=== PATIENT | female | born 1955 | race Caucasian/White ===

== ENCOUNTER → 2016-11-01 | Outpatient (CLI) | payer BC ==
--- NOTE | 2016-11-02 07:48 | BD ---
EXAMINATION TYPE: MG DEXA axial skeleton. DATE OF EXAM: 11/01/2016 COMPARISON: Bone density August 14, 2012 CLINICAL HISTORY: Postmenopausal female Height: 64 IN Weight: 147 LBS FRAX RISK QUESTIONS: Alcohol (3 or more units per day): NO Family History (Parent hip fracture): NO Glucocorticoids (More than 3mos): NO (Ex: prednisone, prednisolone, methylprednisolone, dexamethasone, and hydrocortisone). History of Fracture in Adulthood: NO Secondary Osteoporosis: 1. Type 1 Diabetes: NO 2. Hyperthyroidism: NO 3. Menopause before 45: YES AGE 43 4. Malnutrition: NO 5. Chronic liver disease: NO Rheumatoid Arthritis: NO Current Tobacco Use: NO RISK FACTORS HISTORY OF: Active: YES Diet low in dairy products/other sources of calcium: YES Postmenopausal woman: AGE 43 MEDICATIONS: Additional Medications: CALCIUM, VIT D, CHOLESTEROL MEDS, EXAM MEASUREMENTS: Bone mineral densitometry was performed using the [employer] System. Bone mineral density as measured about the Lumbar spine is: ----- L1-L4(G/cm2): -1.0 T Score Values are as follows: ----- L2: -1.8 ----- L3: -0.7 ----- L4: 0.2 ----- L1-L4: -1.0 Bone mineral density has: Increased 2.4% since study of: 08/14/2012 Bone mineral density about the R hip (g/cm2): 0.806 Bone mineral density about the L hip (g/cm2): 0.821 T Score values are as follows: -----R Neck: -1.4 -----L Neck: -1.9 -----R Total: -1.6 -----L Total: -1.5 Bone mineral density has: Decreased 1.6% since study of: 08/08/1612 IMPRESSION: Osteopenia (T Score between -2.5 and -1 as noted by T score values remains present in both hips. Ther e remains slightly increased risk of fracture and the patient may be considered for treatment. Re-Scr een 2-5 years. NOTE: T-SCORE=SD OF THE YOUNG ADULT MEAN.
--- NOTE | 2016-11-02 11:27 | MM ---
Reason for exam: screening (asymptomatic). Last mammogram was performed 3 years and 1 month ago. History: Patient is postmenopausal. Physical Findings: A clinical breast exam by your physician is recommended on an annual basis and results should be correlated with mammographic findings. MG Screening Mammo w CAD Bilateral CC and MLO view(s) were taken. Prior study comparison: October 06, 2013, bilateral MG screening mammo w CAD. August 14, 2012, bilateral digital screening mammo w/CAD. The breast tissue is heterogeneously dense. This may lower the sensitivity of mammography. Asymmetric breast tissue bilaterally. There is no discrete abnormality. ASSESSMENT: Negative, BI-RAD 1 RECOMMENDATION: Routine screening mammogram of both breasts in 1 year.
== END | disposition home or self-care (01) ==
LOC: RADMAMWWP 15:16
PROVIDERS: ATTEND Obstetrics & Gynecology
DX: Z12.31 Encounter for screening mammogram for malignant neoplasm of breast (principal); M85.88 Other specified disorders of bone density and structure, other site
CPT/HCPCS: 77080; G0202

== ENCOUNTER → 2017-11-08 | Outpatient (CLI) | payer BC ==
--- NOTE | 2017-11-09 11:09 | MM ---
Reason for exam: screening (asymptomatic). Last mammogram was performed 1 year ago. History: Patient is postmenopausal. Physical Findings: A clinical breast exam by your physician is recommended on an annual basis and results should be correlated with mammographic findings. MG Screening Mammo w CAD Bilateral CC and MLO view(s) were taken. Prior study comparison: November 01, 2016, bilateral MG screening mammo w CAD. October 06, 2013, bilateral MG screening mammo w CAD. The breast tissue is heterogeneously dense. This may lower the sensitivity of mammography. There is no discrete abnormality. No significant changes when compared with prior studies. ASSESSMENT: Negative, BI-RAD 1 RECOMMENDATION: Routine screening mammogram of both breasts in 1 year.
== END | disposition home or self-care (01) ==
LOC: RADMAMWWP 15:03
PROVIDERS: ATTEND Obstetrics & Gynecology
DX: Z12.31 Encounter for screening mammogram for malignant neoplasm of breast (principal)
CPT/HCPCS: 77067

== ENCOUNTER → 2018-10-28 | Day surgery (SDC) | payer BC ==
[2018-10-24 13:52] VITALS: BMI 23.6
[~2018-10-28] MED LIST: LACTATED RINGERS 1,000 ML IV SCH; LIDOCAINE 1% 20 ML VIAL (10MG/ML) FOR IV START INTRADERMA ONE; LIDOCAINE 1% INJ 10MG/ML (20 ML MDV) ONE; PROPOFOL 10 MG/ML 20 ML VIAL IV ONE
[2018-10-28 09:14] VITALS: RESP 16; TEMP 97.9
--- NOTE | 2018-10-28 10:36 | P.PCN ---
Date of Procedure: 10/28/18 Description of Procedure: BRIEF HISTORY: Patient is a 62-year-old pleasant female scheduled for an elective colonoscopy as a part of screening for malignant neoplasm colon. Denies any change in bowel habits, constipation, diarrhea or abdominal pain. No family history of colon cancer. Last colonoscopy 10 years ago and normal per her recollection. PROCEDURE PERFORMED: Colonoscopy. PREOPERATIVE DIAGNOSIS: Screening for malignant neoplasm of the colon, last colonoscopy 10 years ago. ESTIMATED BLOOD LOSS: Minimal. IV sedation per Anesthesia. PROCEDURE: After informed consent was obtained, the patient, was brought into the endoscopy unit. IV sedation was administered by Anesthesia under continuous monitoring. Digital rectal examination was normal. Initially the Olympus CF-190 flexible video colonoscope was then inserted in the rectum, gradually advanced into the cecum without any difficulty. Careful examination was performed as the scope was gradually being withdrawn. Ileocecal valve and the appendiceal orifice were visualized and appeared normal. Prep was excellent. Mucosa of the cecum, ascending colon, transverse colon, descending colon, sigmoid colon, and rectum appeared normal. Retroflexion was performed in the rectum and no lesions were seen, mild internal hemorrhoids noted. The patient tolerated the procedure well. IMPRESSION: Normal-appearing colon from rectum to cecum. RECOMMENDATIONS: Findings of this examination were discussed with the patient and her . Okay to resume diet. Recommendation is for repeat colonoscopy in 10 years, or sooner if signs or symptoms which warrant further evaluation develop.
[2018-10-28 10:57] VITALS: BP 128/60; PULSE 51
== END | disposition home or self-care (01) ==
LOC: ORWHC2ENDO 08:45
PROVIDERS: ATTEND Internal Medicine
DX: Z12.11 Encounter for screening for malignant neoplasm of colon (principal); K64.8 Other hemorrhoids; Z88.8 Allergy status to other drugs, medicaments and biological substances; E78.5 Hyperlipidemia, unspecified; Z79.899 Other long term (current) drug therapy; Z88.6 Allergy status to analgesic agent
CPT/HCPCS: J2001; J2704; G0121; 45378

== ENCOUNTER → 2018-12-27 | Outpatient (CLI) | payer BC ==
--- NOTE | 2018-12-30 07:41 | BD ---
EXAMINATION TYPE: Axial Bone Density DATE OF EXAM: 12/27/2018 COMPARISON: 2017 CLINICAL HISTORY: M [age] Height: 5 FT 3 3/4 IN Weight: 139 FRAX RISK QUESTIONS: Secondary Osteoporosis: 3. Menopause before 45: YES RISK FACTORS HISTORY OF: Active: YES Postmenopausal woman: AGE 43 MEDICATIONS: Additional Medications: CHOLESTEROL, Additional History: EXAM MEASUREMENTS: Bone mineral densitometry was performed using the [employer] System. Bone mineral density as measured about the Lumbar spine is: ----- L1-L4(G/cm2): 1.106 T Score Values are as follows: ----- L2: -1.8 ----- L3: 0.1 ----- L4: 0.4 ----- L1-L4: -0.6 Bone mineral density has: INCREASED 4.0 % since study of: 2016 Bone mineral density about the R hip (g/cm2): 0.813 Bone mineral density about the L hip (g/cm2): 0.765 T Score values are as follows: -----R Neck: -1.6 -----L Neck: -2.0 -----R Total: -1.9 -----L Total: -1.8 Bone mineral density has: DECREASED -5.2 % since study of: 2017 IMPRESSION: Osteopenia (T Score between -2.5 and -1). There is slightly increased risk of fracture and the patient may be considered for treatment. Re-Screen 2-5 years. NOTE: T-SCORE=SD OF THE YOUNG ADULT MEAN.
--- NOTE | 2018-12-30 11:33 | MM ---
Reason for exam: screening (asymptomatic). Last mammogram was performed 1 year and 2 months ago. History: Patient is postmenopausal. Physical Findings: A clinical breast exam by your physician is recommended on an annual basis and results should be correlated with mammographic findings. MG 3D Screening Mammo W/Cad Bilateral CC and MLO view(s) were taken. Prior study comparison: November 08, 2017, bilateral MG screening mammo w CAD. November 01, 2016, bilateral MG screening mammo w CAD. The breast tissue is heterogeneously dense. This may lower the sensitivity of mammography. Focal asymmetry upper outer right breast. This finding is changed when compared with previous exams. ASSESSMENT: Incomplete: need additional imaging evaluation, BI-RAD 0 RECOMMENDATION: Special view mammogram of the right breast. If lesion persists on supplemental views, image directed ultrasound is recommended. [facility] will attempt to contact patient to return for supplemental views and ultrasound if indicated.
== END | disposition home or self-care (01) ==
LOC: RADMAMWWP 15:00
PROVIDERS: ATTEND Obstetrics & Gynecology
DX: Z12.31 Encounter for screening mammogram for malignant neoplasm of breast (principal); M85.80 Other specified disorders of bone density and structure, unspecified site
CPT/HCPCS: 77063; 77067; 77080

== ENCOUNTER → 2019-01-09 | Outpatient (CLI) | payer BC ==
--- NOTE | 2019-01-09 13:41 | MM ---
Reason for exam: additional evaluation requested from abnormal screening. Last mammogram was performed less than 1 month ago. History: Patient is postmenopausal. Physical Findings: Nurse did not find any significant physical abnormalities on exam. MG 3D Work Up W/Cad RT Spot compression CC, spot compression MLO, and ML view(s) were taken of the right breast. Prior study comparison: December 27, 2018, bilateral MG 3d screening mammo w/cad. November 08, 2017, bilateral MG screening mammo w CAD. Persistent nodule in the right breast 4.4cm from nipple. These results were verbally communicated with the patient and result sheet given to the patient on 01/09/19. ASSESSMENT: Incomplete: need additional imaging evaluation, BI-RAD 0 RECOMMENDATION: Ultrasound of the right breast.
--- NOTE | 2019-01-09 13:43 | USB ---
Reason for exam: additional evaluation requested from abnormal screening. History: Patient is postmenopausal. US Breast Workup Limited RT Right limited breast ultrasound including focal area of concern, retroareolar and axilla demonstrates a 0.3 x 0.2 x 0.3cm lesion too small to characterize at 9:30 and a 0.6 x 0.5 x 0.6cm mixed lesion at 9 o'clock for which a biopsy is recommended. These results were verbally communicated with the patient and result sheet given to the patient on 01/09/19. ASSESSMENT: Suspicious, BI-RAD 4 RECOMMENDATION: Ultrasound core biopsy of the right breast. Called Dr. Gtz's office with mammographic findings and has scheduled an appointment for the patient for 01/22/19 at 1:[address] Mack. Biopsy scheduled for 01/23/19 at 12:20. PRELIMINARY REPORT CALLED AND FAXED TO DR. MACK ON 01/09/19.
== END | disposition home or self-care (01) ==
LOC: RADMAMWWP 08:40
PROVIDERS: ATTEND Obstetrics & Gynecology
DX: R92.8 Other abnormal and inconclusive findings on diagnostic imaging of breast (principal)
CPT/HCPCS: 77061; 77065

== ENCOUNTER → 2019-01-22 | Outpatient (CLI) | payer BC ==
[2019-01-22 14:27] VITALS: BP 137/78; PULSE 66; RESP 18; TEMP 97.7
--- NOTE | 2019-01-22 15:30 | P.GSHP ---
History of Present Illness H&P Date: 01/22/19 Chief Complaint: abnormal mammogram of hte right breast Angeles is a 63-year-old white female who presents for breast evaluation. She underwent a routine 3-D screening mammogram on . This revealed a focal asymmetry in the upper outer quadrant of the right breast. The patient subsequently underwent additional views of the right breast in which the nodularity persisted. An ultrasound was then performed which revealed a 0.5 x 0.6 cm mixed lesion at 9:00 for which an ultrasound core biopsy was recommended. The patient does not feel any masses or nodules in her breast. She has not had any recent trauma or infection in the breast. She has not had any breast biopsy in the past. She drinks coffee 1-2 cup/day. She does not smoke, and is not exposed to second hand smoke. She does not eat chocolate regularly. She is not taking any hormones or soy products. Family history: mother: ? site, metastatic disease father: prostate Hormonal History: menarche: 13 , 1 [place], breast fed: no, first born at 18 menopause: periods stopped 42 hormones: none Past Medical History: high cholesterol follows with DR. Allen, renal disease elevated creatine Past Surgical History: 1. exploratory surgery cyst on an ovary Social History: smoke: 1 PPD started at 18, but stopped years ago alcohol: occasional drugs: none - Constitutional Constitutional: Denies chills, Denies fever - EENT Eyes: denies blurred vision, denies pain Ears: deny: decreased hearing, tinnitus Ears, nose, mouth and throat: Denies headache, Denies sore throat - Breasts Breasts: bilateral: as per HPI - Cardiovascular Comment: high cholesterol Cardiovascular: Denies chest pain, Denies shortness of breath - Respiratory Comment: former smoker Respiratory: Denies cough, Denies 7 - Gastrointestinal Gastrointestinal: Denies abdominal pain, Denies diarrhea, Denies nausea, Denies vomiting - Genitourinary (Female) Genitourinary: Denies dysuria, Denies hematuria - Menstruation Menstruation: Reports postmenopausal - Musculoskeletal Musculoskeletal: Denies myalgias - Integumentary Comment: sees mercantile agent Integumentary: Denies pruritus, Denies rash - Neurological Neurological: Denies numbness, Denies weakness - Psychiatric Psychiatric: Denies anxiety, Denies depression - Endocrine Endocrine: Denies fatigue, Denies weight change - Hematologic/Lymphatic Comment: none - Allergic/Immunologic Allergic/Immunologic: Reports as per HPI Past Medical History Past Medical History: Renal Disease Additional Past Medical History / Comment(s): SEES DR ALLEN FOR HER KIDNEYS. History of Any Multi-Drug Resistant Organisms: None Reported Additional Past Surgical History / Comment(s): EXPLORATORY WITH OVARIAN CYST, COLONOSCOPY Past Anesthesia/Blood Transfusion Reactions: No Reported Reaction Past Psychological History: No Psychological Hx Reported Smoking Status: Former smoker Past Alcohol Use History: Rare Additional Past Alcohol Use History / Comment(s): QUIT SMOKING FEB 2009, WAS SMOKING 5-7 CIGARETTES/DAY, SMOKED APPROX 25 YEARS. Past Drug Use History: None Reported - Past Family History Mother Family Medical History: Cancer Father Family Medical History: Cancer Additional Family Medical History / Comment(s): PROSTATE CANCER Medications and Allergies Home Medications Medication Instructions Recorded Confirmed Type Ascorbic Acid [Vitamin C] 500 mg PO DAILY 10/24/18 01/22/19 History Atorvastatin [Lipitor] 10 mg PO HS 10/24/18 01/22/19 History Caltrate (Unknown Dose) 1 tab PO DAILY 10/24/18 01/22/19 History Cholecalciferol (Vitamin D3) 1,000 unit PO DAILY 10/24/18 01/22/19 History [Vitamin D3] Co Q-10 (Unknown Dose) 1 tab PO DAILY 10/24/18 01/22/19 History Krill Oil (Unknown Dose) 1 tab PO DAILY 10/24/18 01/22/19 History Lactobacillus Acidophilus 1 each PO DAILY 10/24/18 01/22/19 History [Acidophilus] Multivitamins, Thera [Multivitamin 1 tab PO DAILY 10/24/18 01/22/19 History (formulary)] Allergies Allergy/AdvReac Type Severity Reaction Status Date / Time ibuprofen Allergy Unknown Heart Verified 01/22/19 14:28 racing, chest pain oxytetracycline Allergy Unknown Rash/Hives, Verified 01/22/19 14:28 [From Urobiotic] Itching phenazopyridine Allergy Unknown Rash/Hives, Verified 01/22/19 14:28 [From Urobiotic] Itching sulfamethizole Allergy Unknown Rash/Hives, Verified 01/22/19 14:28 [From Urobiotic] Itching estrogens, conjugated Allergy Rash/Hives Unverified 01/22/19 14:28 [From Prempro] ethinyl estradiol Allergy Itching Unverified 01/22/19 14:28 [From Femhrt 1] medroxyprogesterone Allergy Rash/Hives Unverified 01/22/19 14:28 [From Prempro] norethindrone acetate Allergy Itching Unverified 01/22/19 14:28 [From Femhrt 02/23] Surgical - Exam Vital Signs Temp Pulse Resp BP Pulse Ox 97.7 F 66 18 137/78 98 01/22/19 14:23 01/22/19 14:23 01/22/19 14:23 01/22/19 14:23 01/22/19 14:23 BMI 24.4 - General well developed, well nourished, no distress - Eyes normal ocular movement - ENT no hearing loss, no congestion - Neck no masses, trachea midline - Respiratory normal respiratory effort, clear to auscultation - Cardiovascular Rhythm: regular Heart Sounds: normal: S1, S2 - Abdomen Abdomen: soft, non tender, no guarding, no rigid, no rebound - Integumentary normal turgor - Neurologic no disoriented, no combative - Musculoskeletal normal gait, normal posture - Psychiatric oriented to time, oriented to person, oriented to place, speech is normal, memory intact breast exam: right breast: Multi-positional exam fibrocystic changes, no dominant masses or nodules of concern Right axilla: No adenopathy of concern Left breast: Multi-positional exam no dominant masses or nodules of concern Left axilla: No adenopathy of concern Results Mammogram and ultrasound results reviewed Assessment and Plan Assessment: Impression: 1. Abnormal mammogram and ultrasound right breast/9 o'clock position 2. Fibrocystic breast changes 3. Family history of cancer father/mother no history of breast cancer 4. Elevated creatinine in the past follows with Dr. Allen clinically stable 5. elevated cholesterol Plan: 1. Abnormal mammogram and ultrasound right breast, patient to have ultrasound core biopsy 2. Follow up 1 week after ultrasound core biopsy Risks and benefits of the procedure were discussed with the patient. Risks include bleeding, infection, possible inability to see the lesion. The patient understands and wishes to proceed. The patient has question whether she can do water aerobics immediately after the procedure. I have recommended that she wait approximately 48 hours. Encounter 20 minutes, > 50% planning and coordination of care. Cc:
== END ==
LOC: WWCWWP 14:07
PROVIDERS: ATTEND Surgery
DX: Z53.9 Procedure and treatment not carried out, unspecified reason (principal)

== ENCOUNTER → 2019-01-23 | Day surgery (SDC) | payer BC ==
[2019-01-23 11:47] VITALS: RESP 16
[2019-01-23 12:37] VITALS: BP 160/84; PULSE 84; TEMP 98.1
--- NOTE | 2019-01-23 12:38 | USB ---
EXAMINATION TYPE: US biopsy breast VAD RT, MG diagnostic mammo RT wo CAD DATE OF EXAM: 01/23/2019 CLINICAL HISTORY: R92.8, Abnormal mammogram. TECHNIQUE: Ultrasound guided core biopsy of right breast. COMPARISON: Right breast ultrasound dated 01/09/2019 FINDINGS: The procedure of ultrasound guided core biopsy was explained to the patient. Benefits, alternatives, and risks were discussed. An informed consent was then obtained. Preprocedural timeout was performed. The patient was placed in supine positioning for imaging and for the procedure. The overlying skin was prepped and draped in usual sterile fashion. 10 cc of 1% lidocaine was used as anesthetic into the skin and subcutaneous tissue up to a 0.6 cm mass at the 9:00 position in the right breast. Under ultrasound guidance, a 12-gauge vacuum assisted biopsy gun device was used to obtain 5 core samples. Following this, a biopsy marker was left in the mass. Postprocedure mammogram demonstrates appropriate biopsy marker placement. This is concordant with the mammographic mass. The patient tolerated the procedure well without any immediate complication. The patient was kept in the radiology department for short stay after the procedure and then discharged home in stable condition. IMPRESSION: Successful, uncomplicated ultrasound guided core biopsy of area of a 0.6 cm mass at the 9:00 position in the right breast, full pathology results to follow. Pathology Results: Benign RIGHT BREAST, NINE O'CLOCK, ULTRASOUND GUIDED CORE BIOPSY: Fibroadenoma, tubular variant. Recommendation Follow up mammogram of the right breast in 6 months. FABIOLA
--- NOTE | 2019-01-31 14:24 | P.PN ---
Subjective Progress Note Date: 01/31/19 Principal diagnosis: Angeles is a 63 year old white female status post a right breast core biopsy on 01-23-19. Pathology revealed a fibroadenoma. She has done well since the procedure with no complaints. Objective - Vital Signs Vital signs: Vital Signs Temp 98.1 F 01/23/19 12:33 Pulse 84 01/23/19 12:33 Resp 16 01/23/19 12:33 BP 160/84 01/23/19 12:33 Pulse Ox - Exam BMI 23.7 - Constitutional General appearance: Present: average body habitus - EENT Eyes: Present: EOMI ENT: Present: hearing grossly normal - Neck Neck: Present: normal ROM - Respiratory Respiratory: bilateral: CTA - Cardiovascular Rhythm: regular Heart sounds: normal: S1, S2 - Integumentary Integumentary Comment(s): incision site: mild echymosis at the biopsy site, no infection Integumentary: Present: normal turgor Assessment and Plan Assessment: Impression: 1. status post right breast core biopsy, pathology fibroadenoma Plan: 1. follow up in 6 months with mammogram and ultrasound of the right breast CC: DR. Gtz, Dr. West Time with Patient: Less than 30
== END ==
LOC: RADUSWWP 11:07
PROVIDERS: ATTEND Surgery
DX: D24.1 Benign neoplasm of right breast (principal)
CPT/HCPCS: 88305; 77065; 19083; A4648; J2001

== ENCOUNTER → 2019-01-31 | Outpatient (CLI) | payer BC ==
[2019-01-31 14:39] VITALS: BP 123/59; PULSE 83; RESP 18; TEMP 98.3
== END | disposition home or self-care (01) ==
LOC: WWCWWP 14:10
PROVIDERS: ATTEND Surgery
DX: Z53.9 Procedure and treatment not carried out, unspecified reason (principal)

== ENCOUNTER → 2020-02-12 | Outpatient (CLI) | payer BC ==
--- NOTE | 2020-02-17 10:03 | MM ---
Reason for exam: screening (asymptomatic). Last mammogram was performed 1 year and 1 month ago. History: Patient is postmenopausal. Benign US biopsy breast VAD RT of the right breast, January 23, 2019. Physical Findings: A clinical breast exam by your physician is recommended on an annual basis and results should be correlated with mammographic findings. MG 3D Screening Mammo W/Cad Bilateral CC and MLO view(s) were taken. Prior study comparison: January 23, 2019, right breast MG diagnostic mammo RT wo CAD. January 09, 2019, right breast MG 3d work up w/cad RT. The breast tissue is heterogeneously dense. This may lower the sensitivity of mammography. Previous mammotome biopsy in the right breast. No significant changes when compared with prior studies. ASSESSMENT: Negative, BI-RAD 1 RECOMMENDATION: Routine screening mammogram of both breasts in 1 year.
== END | disposition home or self-care (01) ==
LOC: RADMAMWWP 07:44
PROVIDERS: ATTEND Obstetrics & Gynecology
DX: Z12.31 Encounter for screening mammogram for malignant neoplasm of breast (principal)
CPT/HCPCS: 77063; 77067

== ENCOUNTER → 2022-05-03 | Outpatient (CLI) | payer BC ==
--- NOTE | 2022-05-03 10:36 | MM ---
Reason for Exam: Screening (asymptomatic). Last mammogram was performed 1 year(s) and 2 month(s) ago. Patient History: Menarche at age 12. First Full-Term at age 18. Postmenopausal. 01/23/2019, Benign Core Biopsy on the right side. Risk Values: Anjali 5 year model risk: 1.4%. NCI Lifetime model risk: 5.2%. Prior Study Comparison: 01/23/2019 Right Diagnostic Mammogram, [facility]. 02/12/2020 Bilateral Screening Mammogram, [facility]. 02/28/2021 Bilateral Screening Mammogram, [facility]. Tissue Density: The breast tissue is heterogeneously dense. This may lower the sensitivity of mammography. Analyzed By CAD. Overall Assessment: Benign, BI-RAD 2 Management: Screening Mammogram of both breasts in 1 year. Electronically signed and approved by: Magno Gooden M.D.
== END | disposition home or self-care (01) ==
LOC: RADMAMWWP 06:47
PROVIDERS: ATTEND Obstetrics & Gynecology
DX: Z12.31 Encounter for screening mammogram for malignant neoplasm of breast (principal); Z78.0 Asymptomatic menopausal state
CPT/HCPCS: 77063; 77067

== ENCOUNTER 2022-06-10 19:06 | Observation (INO) | payer BC ==
[2022-06-10] MEDS ORDERED: SODIUM CHLORIDE 0.9% 500 ML 500 ML IV ONE (19:40)
[2022-06-10] MEDS ORDERED: MECLIZINE 12.5 MG TAB PO STA (19:40)
[2022-06-10] MEDS ORDERED: PROCHLORPERAZINE INJ 10 MG/2 ML VIAL IVP STA (20:27)
[2022-06-10 20:28] LABS: Basophils % (A) 0 %; Eosinophils # (A) 0.1 k/uL (0-0.7); Eosinophils % (A) 1 %; HCT 42.9 % (34.0-46.0); HGB 14.4 gm/dL (11.4-16.0); Lymphocytes # (A) 0.9 k/uL (1.0-4.8); Lymphocytes % (A) 10 %; MCH 29.2 pg (25.0-35.0); MCHC 33.5 g/dL (31.0-37.0); MCV 87.1 fL (80.0-100.0); Mean Platelet Volume 7.3; Monocytes # (A) 0.4 k/uL (0-1.0); Monocytes % (A) 4 %; Neutrophils % (A) 85 %; Platelet Count 257 k/uL (150-450); RBC 4.93 m/uL (3.80-5.40); RDW 13.7 % (11.5-15.5); WBC 9.4 k/uL (3.8-10.6)
--- NOTE | 2022-06-10 20:29 | ED ---
General Adult HPI - General Chief complaint: Nausea/Vomiting/Diarrhea Stated complaint: Vertigo Time Seen by Provider: 06/10/22 19:08 Source: patient, RN notes reviewed Mode of arrival: EMS Limitations: no limitations - History of Present Illness Initial comments: 66-year-old female with past medical history significant for vertigo presents to the emergency department via EMS with a chief complaint of dizziness. Patient reports that her dizziness awoke her from her sleep last night. She reports that she feels as if she is spinning. She is also complaining of accompanying symptoms of photophobia, nausea and vomiting. She reports that her last flare up of vertigo was approximately 10 years ago. He denies any lightheadedness, chest pain, shortness of breath, palpitations, abdominal pain. She reports recent trauma or falls. - Related Data Home Medications Medication Instructions Recorded Confirmed Atorvastatin [Lipitor] 20 mg PO HS 06/10/22 06/10/22 Krill/[place]-3/Dha/Epa/Lipids 1 cap PO DAILY 06/10/22 06/10/22 [Krill Oil 350 mg Softgel] Multivit-Min/Iron/Folic/Lutein 1 tab PO DAILY 06/10/22 06/10/22 [Centrum Silver Women Tablet] Allergies Allergy/AdvReac Type Severity Reaction Status Date / Time ibuprofen Allergy Unknown Heart Verified 06/10/22 21:15 racing, chest pain oxytetracycline Allergy Unknown Rash/Hives, Verified 06/10/22 21:15 [From Urobiotic] Itching phenazopyridine Allergy Unknown Rash/Hives, Verified 06/10/22 21:15 [From Urobiotic] Itching sulfamethizole Allergy Unknown Rash/Hives, Verified 06/10/22 21:15 [From Urobiotic] Itching estrogens, conjugated Allergy Rash/Hives Verified 06/10/22 21:15 [From Prempro] ethinyl estradiol Allergy Itching Verified 06/10/22 21:15 [From Femhrt 1] medroxyprogesterone Allergy Rash/Hives Verified 06/10/22 21:15 [From Prempro] norethindrone acetate Allergy Itching Verified 06/10/22 21:15 [From Femhrt 02/23] Review of Systems ROS Statement: Those systems with pertinent positive or pertinent negative responses have been documented in the HPI. ROS Other: All systems not noted in ROS Statement are negative. Past Medical History Past Medical History: Renal Disease Additional Past Medical History / Comment(s): SEES DR MCDONNELL FOR HER KIDNEYS. 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 Absent: scleral icterus, conjunctival injection, periorbital swelling ENT exam: Present: normal exam, mucous membranes moist Neck exam: Present: normal inspection. Absent: tenderness, meningismus, lymphadenopathy Respiratory exam: Present: normal lung sounds bilaterally. Absent: respiratory distress, wheezes, rales, rhonchi, stridor Cardiovascular Exam: Present: regular rate, normal rhythm, normal heart sounds. Absent: systolic murmur, diastolic murmur, rubs, gallop, clicks GI/Abdominal exam: Present: soft, normal bowel sounds. Absent: distended, tenderness, guarding, rebound, rigid Extremities exam: Present: normal inspection, full ROM, normal capillary refill. Absent: tenderness, pedal edema, joint swelling, calf tenderness Back exam: Present: normal inspection Neurological exam: Present: alert, oriented X3, CN II-XII intact. Absent: normal gait Expanded Patient oriented to: Present: person, place, time Speech: Present: fluid speech Cranial nerves: EOM's Intact: Normal, Nystagmus: Abnormal Left Cerebellar function: Finger to Nose: Normal, Heel to Em: Normal, Romberg: Normal Sensory exam: Upper Extremity Light Touch: Normal, Lower Extremity Light Touch: Normal Motor strength exam: RUE: 5, LUE: 5, RLE: 5, LLE: 5 Eye Response: (4) open spontaneously Motor Response: (6) obeys commands Verbal Response: (5) oriented Psychiatric exam: Present: normal affect, normal mood Skin exam: Present: warm, dry, intact, normal color. Absent: rash Course Vital Signs 06/10/22 06/10/22 06/10/22 19:09 21:02 22:04 Temperature 97.6 F Pulse Rate 66 82 75 Respiratory 18 17 16 Rate Blood Pressure 184/92 162/79 162/79 O2 Sat by Pulse 97 96 92 L Oximetry - Reevaluation(s) Reevaluation #1: 06/10/22 21:01 Patient unable to ambulate. CT ordered Reevaluation #2: 06/10/22 22:25 Patient reevaluated. Patient still unable to ambulate. Patient is agreeable with the plan for admission. Reevaluation #3: 06/10/22 22:[address] [facility] who agrees and accepts the patient for admission Medical Decision Making - Medical Decision Making Was pt. sent in by a medical professional or institution (, PA, RAIL CAR UNLOADER, urgent care, hospital, or skilled nursing...) When possible be specific @ -[No] Did you speak to anyone other than the patient for history (EMS, parent, family, police, friend...)? What history was obtained from this source @ -[No] Did you review nursing and triage notes (agree or disagree)? Why? @ -[I reviewed and agree with nursing and triage notes] Were old charts reviewed (outside hosp., previous admission, EMS record, old EKG, old radiological studies, urgent care reports/EKG's, skilled nursing records)? Report findings @ -[No old charts were reviewed] Differential Diagnosis (chest pain, altered mental status, abdominal pain women, abdominal pain men, vaginal bleeding, weakness, fever, dyspnea, syncope, headache, dizziness, GI bleed, back pain, seizure, CVA, palpatations, mental health, musculoskeletal)? @ -[not applicable] EKG interpreted by me (3pts min.). @ -[As above] X-rays interpreted by me (1pt min.). @ -[None done] CT interpreted by me (1pt min.). @ -[None done] U/S interpreted by me (1pt. min.). @ -[None done] What testing was considered but not performed or refused? (CT, X-rays, U/S, labs)? Why? @ -[None] What meds were considered but not given or refused? Why? @ -[None] Did you discuss the management of the patient with other professionals (professionals i.e. , PA, RAIL CAR UNLOADER, lab, RT, psych nurse, social work case manager, flare man, teacher, chief business officer, bottle caser)? Give summary @ -[No] Was smoking cessation discussed for >3mins.? @ -[No] Was critical care preformed (if so, how long)? @ -[No] Were there social determinants of health that impacted care today? How? (Homelessness, low income, unemployed, alcoholism, drug addiction, transportation, low edu. Level, literacy, decrease access to med. care, prison, rehab)? @ -[No] Was there de-escalation of care discussed even if they declined (Discuss DNR or withdrawal of care, Hospice)? DNR status @ -[No] What co-morbidities impacted this encounter? (DM, HTN, Smoking, COPD, CAD, Cancer, CVA, ARF, Chemo, Hep., AIDS, mental health diagnosis, sleep apnea, morbid obesity)? @ -[None] Was patient admitted / discharged? Hospital course, mention meds given and route, prescriptions, significant lab abnormalities, going to OR and other pertinent info. @ Admission. This is a 66-year-old female who presents the emergency department with dizziness.. Patient had a thorough history and physical exam performed physical exam essentially unremarkable. Heart rate regular rate and rhythm, lungs clear to auscultation bilaterally abdomen is soft and nontender. There is mild nystagmus to the left on physical exam, despite multiple attempts to ambulate the patient patient is unable tingling with a steady gait. Patient had lab work and imaging performed which revealed: CT head reveals mild cerebral atrophy with no acute intracranial process Lab work reveals WBC 9.4, hemoglobin 14.4 CMP unremarkable Patient was given Antivert and Compazine and 1 L of IV fluids without any symptomatic relief. I discussed the results in detail with the patient verbalized understanding and all questions were addressed. I discussed the case with Luci from [facility] who agrees and accepts the patient with neurology consult tomorrow in the morning. with [facility]ULE[facility] Albert who agrees with plan of care Undiagnosed new problem with uncertain prognosis? @ -[No] Drug Therapy requiring intensive monitoring for toxicity (Heparin, Nitro, Insulin, Cardizem)? @ -[No] Were any procedures done? @ -[No] Diagnosis/symptom? @ -Dizziness - Labyrinthitis VS cerebellar stroke Acute, or Chronic, or Acute on Chronic? @ -acute Uncomplicated (without systemic symptoms) or Complicated (systemic symptoms)? @ -complicated Side effects of treatment? @ -[No] Exacerbation, Progression, or Severe Exacerbation? @ -[No] Poses a threat to life or bodily function? How? (Chest pain, USA, CA, pneumonia, PE, COPD, DKA, ARF, appy, cholecystitis, CVA, Diverticulitis, Homicidal, Suicidal, threat to staff... and all critical care pts) @ -low likelihood - Lab Data Result diagrams: 06/10/22 19:51 06/10/22 19:51 Lab Results 06/10/22 06/10/22 Range/Units 19:51 19:51 WBC 9.4 (3.8-10.6) k/uL RBC 4.93 (3.80-5.40) m/uL Hgb 14.4 (11.4-16.0) gm/dL Hct 42.9 (34.0-46.0) % MCV 87.1 (80.0-100.0) fL MCH 29.2 (25.0-35.0) pg MCHC 33.5 (31.0-37.0) g/dL RDW 13.7 (11.5-15.5) % Plt Count 257 (150-450) k/uL MPV 7.3 Neutrophils % 85 % Lymphocytes % 10 % Monocytes % 4 % Eosinophils % 1 % Basophils % 0 % Neutrophils # 8.0 H (1.3-7.7) k/uL Lymphocytes # 0.9 L (1.0-4.8) k/uL Monocytes # 0.4 (0-1.0) k/uL Eosinophils # 0.1 (0-0.7) k/uL Basophils # 0.0 (0-0.2) k/uL Sodium 141 (137-145) mmol/L Potassium 4.2 (3.5-5.1) mmol/L Chloride 108 H (98-107) mmol/L Carbon Dioxide 22 (22-30) mmol/L Anion Gap 11 mmol/L BUN 14 (7-17) mg/dL Creatinine 0.87 (0.52-1.04) mg/dL Est GFR (CKD-EPI)AfAm 81 (>60 ml/min/1.73 sqM) Est GFR (CKD-EPI)NonAf 70 (>60 ml/min/1.73 sqM) Glucose 134 H (74-99) mg/dL Calcium 9.4 (8.4-10.2) mg/dL Total Bilirubin 0.6 (0.2-1.3) mg/dL AST 30 (14-36) U/L ALT 25 (4-34) U/L Alkaline Phosphatase 79 (38-126) U/L Total Protein 6.8 (6.3-8.2) g/dL Albumin 4.2 (3.5-5.0) g/dL Disposition Clinical Impression: Dizziness, Nausea and vomiting Disposition: ADMITTED IP TO THIS [facility] Condition: Fair Is patient prescribed a controlled substance at d/c from ED?: No Referrals: Sam West MD [Primary Care Provider] - 1-2 days Time of Disposition: 22:25
[2022-06-10 20:40] LABS: Albumin 4.2 g/dL (3.5-5.0); Calcium 9.4 mg/dL (8.4-10.2); Potassium 4.2 mmol/L (3.5-5.1); Total Bilirubin 0.6 mg/dL (0.2-1.3); Total Protein 6.8 g/dL (6.3-8.2)
--- NOTE | 2022-06-10 22:12 | CT ---
EXAMINATION TYPE: CT brain wo con CT DLP: 1153.2 mGycm, Automated exposure control for dose reduction was used. DATE OF EXAM: 06/10/2022 9:59 PM COMPARISON: No relevant priors. CLINICAL INDICATION:Female, 66 years old with history of dizziness, dizziness, nausea. TECHNIQUE: Brain: Axial CT images of the brain were obtained with coronal and sagittal reformats created and rev iewed. Contrast used: None. Oral contrast used: None. FINDINGS: Brain: Extra-axial spaces: No abnormal extra-axial fluid collections. Ventricular system: Within normal limits Cerebral parenchyma: Mild frontal cerebral atrophy. No acute intraparenchymal hemorrhage or mass effe ct. The stratton-white junction is well differentiated. Cerebellum: Unremarkable. Mass effect: No evidence of midline shift. Intracranial vasculature: Atherosclerotic calcifications of the intracranial vessels. Soft tissues: Normal. Calvarium/osseous structures: No depressed skull fracture. Paranasal sinuses and mastoid air cells: Mild scattered paranasal sinus disease.. Mastoid air cells a re Clear Visualized orbits: Orbital contents are intact. IMPRESSION: Mild cerebral atrophy. No acute intracranial process.
[2022-06-10] MEDS ORDERED: NALOXONE 0.4 MG/ML 1 ML VIAL IV PRN (22:28)
[2022-06-10] MEDS ORDERED: ONDANSETRON 4 MG/2 ML VIAL IVP PRN (22:28)
[2022-06-10] MEDS ORDERED: PROCHLORPERAZINE 5 MG TAB PO PRN (22:28)
[2022-06-10] MEDS ORDERED: SODIUM CHLORIDE 0.9% 1,000 ML IV SCH (22:30)
[2022-06-10 23:30] VITALS: TEMP 98.1
[2022-06-11] MEDS: MECLIZINE 12.5 MG TAB PO PRN ×2 (04:46→09:36)
[2022-06-11] MEDS: MULTIVITAMINS, THERA 1 EACH TAB PO SCH ×2 (07:48→09:36)
[2022-06-11 08:21] VITALS: BP 147/76; PULSE 84; RESP 16
--- NOTE | 2022-06-11 11:55 | P.HPIM ---
History of Present Illness 66-year-old pleasant female is admitted for vertigo. Patient is still dizzy this dizziness is a on and off when she sits constant when she sits and moves around patient does have some instability. Patient doesn't have any similar s igns patient had a history of labyrinthitis in the past patient does have fullness in the ears denied any hearing problems denied any ringing in the ears, denied any weakness. Patient had issues with labyrinthitis in the past. Dik's- halspike maneuver is consistent with benign positional vertigo with horizontal nystagmus. Patient denied any vision problems. REVIEW OF SYSTEMS: CONSTITUTIONAL: No fever, no malaise, no fatigue. HEENT: No recent visual problems or hearing problems. Denied any sore throat. CARDIOVASCULAR: No chest pain, orthopnea, PND, no palpitations, no syncope. PULMONARY: No shortness of breath, no cough, no hemoptysis. GASTROINTESTINAL: No diarrhea, no nausea, no vomiting, no abdominal pain. NEUROLOGICAL: No headaches, no weakness, no numbness. HEMATOLOGICAL: Denies any bleeding or petechiae. GENITOURINARY: Denies any burning micturition, frequency, or urgency. MUSCULOSKELETAL/RHEUMATOLOGICAL: Denies any joint pain, swelling, or any muscle pain. ENDOCRINE: Denies any polyuria or polydipsia. The rest of the 14-point review of systems is negative. PHYSICAL EXAMINATION: GENERAL: The patient is alert and oriented x3, not in any acute distress. Well developed, well nourished. HEENT: Pupils are round and equally reacting to light. EOMI. No scleral icterus. No conjunctival pallor. Normocephalic, atraumatic. No pharyngeal erythema. No thyromegaly. CARDIOVASCULAR: S1 and S2 present. No murmurs, rubs, or gallops. PULMONARY: Chest is clear to auscultation, no wheezing or crackles. ABDOMEN: Soft, nontender, nondistended, normoactive bowel sounds. No palpable organomegaly. MUSCULOSKELETAL: No joint swelling or deformity. EXTREMITIES: No cyanosis, clubbing, or pedal edema. NEUROLOGICAL: Gross neurological examination did not reveal any focal deficits. As mentioned in the interval history cerebellar signs are negative SKIN: No rashes. Assessment and plan -Vertigo patient appears to have peripheral vertigo mostly benign positional gadiel tigo or labyrinthitis, CT of the head is negative for any stroke. An outpatient MRI will be ordered to rule out any cerebellar problems the possibility of which is low, my concern for sepsis CT angle tumor is also low. Patient will follow with neurology as an outpatient. Patient will be discharged on meclizine. -Hyperlipidemia continue with statin Patient will be discharged today Past Medical History Past Medical History: Renal Disease Additional Past Medical History / Comment(s): CKD stage 3. Inner ear infections. 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 Past Drug Use History: None Reported - Past Family History Mother Family Medical History: Cancer Father Family Medical History: Cancer Additional Family Medical History / Comment(s): PROSTATE CANCER Medications and Allergies Home Medications Medication Instructions Recorded Confirmed Type Atorvastatin [Lipitor] 20 mg PO HS 06/10/22 06/10/22 History Krill/[place]-3/Dha/Epa/Lipids 1 cap PO DAILY 06/10/22 06/10/22 History [Krill Oil 350 mg Softgel] Multivit-Min/Iron/Folic/Lutein 1 tab PO DAILY 06/10/22 06/10/22 History [Centrum Silver Women Tablet] Carbamide Peroxide [Debrox Otic] 5 drops BOTH EARS BID #15 ml 06/11/22 Rx Meclizine [Antivert] 25 mg PO TID PRN #30 tab 06/11/22 Rx Allergies Allergy/AdvReac Type Severity Reaction Status Date / Time ibuprofen Allergy Unknown Heart Verified 06/10/22 21:15 racing, chest pain oxytetracycline Allergy Unknown Rash/Hives, Verified 06/10/22 21:15 [From Urobiotic] Itching phenazopyridine Allergy Unknown Rash/Hives, Verified 06/10/22 21:15 [From Urobiotic] Itching sulfamethizole Allergy Unknown Rash/Hives, Verified 06/10/22 21:15 [From Urobiotic] Itching estrogens, conjugated Allergy Rash/Hives Verified 06/10/22 21:15 [From Prempro] ethinyl estradiol Allergy Itching Verified 06/10/22 21:15 [From Femhrt 02/23] medroxyprogesterone Allergy Rash/Hives Verified 06/10/22 21:15 [From Prempro] norethindrone acetate Allergy Itching Verified 06/10/22 21:15 [From Femhrt 02/23] Physical Exam Vitals: Vital Signs Temp Pulse Pulse Resp BP BP Pulse Ox 06/11/22 08:00 16 06/11/22 07:00 98.1 F 84 16 147/76 92 L 06/11/22 02:16 98.1 F 66 17 135/80 99 06/10/22 23:12 98.1 F 83 16 137/73 93 L 06/10/22 22:40 72 16 154/72 94 L 06/10/22 22:04 75 16 162/79 92 L 06/10/22 21:02 82 17 162/79 96 06/10/22 19:09 97.6 F 66 18 184/92 97 Intake and Output 06/10/22 06/11/22 06/11/22 22:59 06:59 14:59 Other: Voiding Method Toilet Weight 67.132 kg 67.132 kg Results CBC & Chem 7: 06/10/22 19:51 06/10/22 19:51 Labs: Abnormal Lab Results - Last 24 Hours (Table) 06/10/22 06/10/22 Range/Units 19:51 19:51 Neutrophils # 8.0 H (1.3-7.7) k/uL Lymphocytes # 0.9 L (1.0-4.8) k/uL Chloride 108 H (98-107) mmol/L Glucose 134 H (74-99) mg/dL Thrombosis Risk Factor Assmnt - Choose All That Apply Any of the Below Risk Factors Present?: Yes Each Factor Represents 1 point: Obesity (BMI >25) Other Risk Factors: Yes Each Risk Factor Represents 2 Points: Age 61-74 years Thrombosis Risk Factor Assessment Total Risk Factor Score: 3 Thrombosis Risk Factor Assessment Level: Moderate Risk
--- NOTE | 2022-06-11 11:55 | P.DS ---
Providers Date of admission: 06/10/22 22:21 Attending physician: Paul Valenzuela Primary care physician: Sam West Hospital Course: Refer to my HPI for further details Patient Condition at Discharge: Fair Plan - Discharge Summary New Discharge Prescriptions: New Carbamide Peroxide [Debrox Otic] 5 drops BOTH EARS BID #15 ml Meclizine [Antivert] 25 mg PO TID PRN #30 tab PRN Reason: Vertigo No Action Krill/[place]-3/Dha/Epa/Lipids [Krill Oil 350 mg Softgel] 1 cap PO DAILY Atorvastatin [Lipitor] 20 mg PO HS Multivit-Min/Iron/Folic/Lutein [Centrum Silver Women Tablet] 1 tab PO DAILY Discharge Medication List Atorvastatin [Lipitor] 20 mg PO HS 06/10/22 [History] Krill/[place]-3/Dha/Epa/Lipids [Krill Oil 350 mg Softgel] 1 cap PO DAILY 06/10/22 [History] Multivit-Min/Iron/Folic/Lutein [Centrum Silver Women Tablet] 1 tab PO DAILY 06/10/22 [History] Carbamide Peroxide [Debrox Otic] 5 drops BOTH EARS BID #15 ml 06/11/22 [Rx] Meclizine [Antivert] 25 mg PO TID PRN #30 tab 06/11/22 [Rx] Follow up Appointment(s)/Referral(s): Latisha Street MD [REFERRING] - 1 Week Sam West MD [Primary Care Provider] - 3 Days Patient Instructions/Handouts: Vertigo (DC) Activity/Diet/Wound Care/Special Instructions: FOLLOW UP DIRECTED, SOONER IF PROBLEMS OR CONCERNS. Discharge Disposition: HOME SELF-CARE
[2022-06-11] MEDS ORDERED: ATORVASTATIN 20 MG TAB PO SCH (21:00)
[2022-06-11] MEDS ORDERED: CARBAMIDE PEROXIDE 6.5% DROPS 15 ML BTL BOTH EARS SCH (21:00)
== END 2022-06-11 12:48 | disposition home or self-care (01) ==
LOC: EC 19:06 → 6NMEDSUR 22:21
PROVIDERS: ADMIT Hospitalist; ATTEND Hospitalist
DX: R42 Dizziness and giddiness (principal); R11.2 Nausea with vomiting, unspecified; E78.5 Hyperlipidemia, unspecified; N18.30 Chronic kidney disease, stage 3 unspecified; Z87.891 Personal history of nicotine dependence; Z79.899 Other long term (current) drug therapy; Z88.2 Allergy status to sulfonamides; Z88.6 Allergy status to analgesic agent
CPT/HCPCS: 96361; 96374; 99285; 36415; 80053; 85025; 70450; G0378 ×2; J0780

== ENCOUNTER → 2023-03-30 | Outpatient (CLI) | payer BC ==
--- NOTE | 2023-04-02 08:33 | MM ---
Reason for Exam: Screening (asymptomatic). Last screening mammogram was performed 11 month(s) ago. Patient History: Menarche at age 12. First Full-Term at age 18. Postmenopausal. 01/23/2019, Benign Core Biopsy on the right side. Risk Values: Anjali 5 year model risk: 1.4%. NCI Lifetime model risk: 5.0%. Prior Study Comparison: 02/12/2020 Bilateral Screening Mammogram, [facility]. 02/28/2021 Bilateral Screening Mammogram, [facility]. 05/02/2022 Bilateral MG 3D screening mammo w/cad, [facility]. Tissue Density: There are scattered fibroglandular densities. Findings: Analyzed By CAD. Right breast biopsy clip. There is no suspicious group of microcalcifications or new suspicious mass. Overall Assessment: Benign, BI-RAD 2 Management: Screening Mammogram of both breasts in [address] [facility] will attempt to contact patient to return for supplemental views and ultrasound if indicated. Patient should continue monthly self-breast exams. A clinical breast exam by your physician is recommended on an annual basis. This exam should not preclude additional follow-up of suspicious palpable abnormalities. Note on Anjali scores and lifetime risk: 1. A Anjali score greater than 3% is considered moderate risk. If this is the case, consider specialist referral to assess eligibility for a risk reducing agent. 2. If overall lifetime risk for the development of breast cancer is 20% or higher, the patient may qualify for future screening with alternating mammogram and breast MRI. Electronically signed and approved by: Jalil Quezada DO
== END | disposition home or self-care (01) ==
LOC: RADMAMWWP 07:22
PROVIDERS: ATTEND Obstetrics & Gynecology
DX: Z12.31 Encounter for screening mammogram for malignant neoplasm of breast (principal); Z78.0 Asymptomatic menopausal state
CPT/HCPCS: 77063; 77067

== ENCOUNTER → 2024-03-13 | Outpatient (CLI) | payer MEDICARE, OTHER ==
--- NOTE | 2024-03-13 07:59 | CTL ---
EXAMINATION TYPE: CT Low Dose Lung DATE OF EXAM: 03/13/2024 7:53 AM COMPARISON: None. CLINICAL INDICATION: Female, 68 years old with history of Z12.2 Screening; Personal hx nicotine depfinn smith, former smoker, was 1 ppd x 35 years, no concerns., history of tobacco use. TECHNIQUE: Multiple axial non-contrast scans were obtained from approximately the lung apices through the upper abdomen. Coronal and sagittal reformatted images were obtained. Low dose technique was uti lized. MIP were created on a separate workstation and submitted for review. CT DLP: 100.7 mGycm, Automated exposure control for dose reduction was used. CT Contrast: Contrast used: None Oral contrast used: None FINDINGS: Lack of intravenous contrast and low dose technique limits the evaluation of the vascular and soft ti ssue structures. LUNGS: No evidence of pulmonary fibrosis. No evidence of focal consolidation, pneumothorax or pleural effusion. Centrilobular emphysema changes. Nodules: RUL: 7 mm series 5 image 14. RML: None. RLL: None. LUCINA: None. LLL: None. AIRWAY: Patent and unremarkable. HEART: Size within normal limits.Atherosclerosis of the arterial vasculature. MEDIASTINUM: No gross evidence of adenopathy. VASCULATURE: No aortic aneurysm. MUSCULOSKELETAL: No acute osseous abnormalities SOFT TISSUES/LYMPH NODES: Unremarkable. LOWER NECK: No significant findings. UPPER ABDOMEN: No significant findings. IMPRESSION: 1. Six-month follow-up for right upper lung posterior 7 mm pulmonary nodule on initial exam. 2. Mild emphysema. CT LUNG RAD AND CT CHEST RECOMMENDATION: Lung-Rad 3 Probably Benign: 6 month follow-up LDCT. S Modifier (other clinically significant findings): None Recommend smoking cessation (if current smoker), or continuation of smoking cessation (if prior smoke r). Annual screening for lung cancer with low-dose computed tomography is recommended in adults ages 55 to 77 years who have a 30 pack-year smoking history and currently smoke or have quit within the pa st 15 years. Screening should be discontinued once a person has not smoked for 15 years or develops a health problem that substantially limits life expectancy or the ability or willingness to have curat jim lung surgery. Lung rads 2021 [email or web address] [facility], , 03/13/2024 7:57 AM
== END | disposition home or self-care (01) ==
LOC: RADCTMAIN 06:52
PROVIDERS: ATTEND Family Medicine
DX: Z12.2 Encounter for screening for malignant neoplasm of respiratory organs (principal); J43.2 Centrilobular emphysema; R91.1 Solitary pulmonary nodule; Z87.891 Personal history of nicotine dependence
CPT/HCPCS: 71271